=== PATIENT | female | born 1970 | race Caucasian/White ===

== ENCOUNTER → 2016-09-15 | Outpatient (CLI) | payer MEDICAID ==
[~2016-09-15] MED LIST: AMOXICILLIN875 MG PO; APAP/OXYCODONE1 TA1 PO; AUGMENTIN1 TA1 PO; BACTRIM DS 8001 TAB PO; HUMALOG MIX 75/10 ML SC; HUMALOG100 U/ML SC; HYDROCODONE1 TABLET PO; HYDROXYZINE 25M25 MG PO; HYDROXYZINE50 MG PO; INSULIN GL100 UNITS/ SC; KEFLEX 500MG.500 MG PO; LACTULOSE10 GM/15 M PO; LANTUS INS100 UNITS/ SC; LEVAQUIN500 MG PO; MEDROL 4MG. DOSE4 MG PO; MIDODRINE HYDROC5 MG PO; Oxycodone5 MG NG; PERCOCET1 TAB PO; PREVALITE 4GM PO4 GM PO; VIREAD300 MG PO; ZOFRAN ODT4 MG PO; ZOFRAN4 MG PO
== END ==
LOC: LAB 17:43
DX: N39.0 Urinary tract infection, site not specified (principal); R31.9 Hematuria, unspecified

== ENCOUNTER 2016-09-23 12:30 | Outpatient (CLI) | payer MEDICAID ==
[~2016-09-23 12:30] MED LIST changes: +HUMULIN 70100 UNITS/ SC
[2016-09-23 12:45] VITALS: BP 141/92
[2016-09-24] MEDS ORDERED: PROMETHAZINE HC25 M1 PO (16:20)
== END 2016-09-23 13:00 | disposition home or self-care (01) ==
LOC: COP 12:30
DX: N39.0 Urinary tract infection, site not specified (principal)
CPT/HCPCS: J1335

== ENCOUNTER 2016-09-24 15:41 | Outpatient (CLI) | payer MEDICAID ==
[2016-09-24 15:55] VITALS: BP 89/60
[2016-09-24] MEDS ORDERED: PROMETHAZINE HC25 M1 PO (16:20)
== END 2016-09-24 16:15 | disposition home or self-care (01) ==
LOC: COP 15:41
DX: N39.0 Urinary tract infection, site not specified (principal)
CPT/HCPCS: J1335

== ENCOUNTER 2016-09-25 13:40 | Outpatient (CLI) | payer MEDICAID ==
[~2016-09-25 13:40] MED LIST changes: +PROMETHAZINE HC25 M1 PO
[2016-09-25 14:15] VITALS: BP 133/90
== END 2016-09-25 14:30 | disposition home or self-care (01) ==
LOC: COP 13:40
DX: N39.0 Urinary tract infection, site not specified (principal)
CPT/HCPCS: J1335

== ENCOUNTER 2016-09-26 11:40 | Outpatient (CLI) | payer MEDICAID ==
[2016-09-26 12:06] VITALS: BP 120/75
== END 2016-09-26 12:17 | disposition home or self-care (01) ==
LOC: COP 11:40
DX: N39.0 Urinary tract infection, site not specified (principal)
CPT/HCPCS: J1335

== ENCOUNTER → 2016-09-27 | Outpatient (CLI) | payer MEDICAID ==
[2016-09-27 18:11] VITALS: BP 127/79
[2016-09-27 18:52] VITALS: BP 127/79
== END ==
LOC: COP 13:00
DX: N39.0 Urinary tract infection, site not specified (principal)

== ENCOUNTER → 2016-10-01 | Outpatient (CLI) | payer MEDICAID ==
--- NOTE | 2016-10-01 15:03 | RADIOLOGY REPORT PS360 ---
[id number] VIEWS HISTORY: RT SHOULDER PAIN ORDERING PHYSICIAN: AMOL SETH MD PATIENT AGE: 46 years COMPARISON: 11/30/2015 TECHNIQUE: Grashey, supraspinatus, and axillary views FINDINGS: No fracture or dislocation. No lytic or blastic change. There is normal mineralization. There are minimal osteoarthritic changes of the glenohumeral joint. IMPRESSION: No change with no acute finding. Minimal osteoarthritic change glenohumeral joint
== END ==
LOC: RAD 11:50
DX: M25.511 Pain in right shoulder (principal)

== ENCOUNTER → 2016-10-02 | Outpatient (CLI) | payer MEDICAID ==
[2016-10-02 14:35] LABS: HEMOGLOBIN 13.5 g/dL (12.2-16.2); LYMPH # 1.6 K/mm3 (0.7-4.5); LYMPH % 29.1 % (10-50.0)
[2016-10-02 14:56] LABS: BUN 19 mg/dL (7-18)
[2016-10-02 15:31] LABS: GFR (ESTIMATED) 53 ML/MIN (59-)
== END ==
LOC: LAB 13:35
PROVIDERS: Emergency Medicine
DX: R53.83 Other fatigue (principal); E11.9 Type 2 diabetes mellitus without complications